=== PATIENT | male | born 1970 | race Caucasian/White ===

== ENCOUNTER 2024-09-07 19:20 | Outpatient (CLI) | payer OTHER, SELFPAY ==
--- NOTE | 2024-10-11 08:04 | W.PM.SLEEP ---
Sleep Study Details Details Interpreting Provider: Cb Date of Sleep Study: 09/07/24 Sleep Study Details: STUDY TYPE:? Home unattended ? BMI:? 33.4 ORDERING PROVIDER:? Stanley INDICATION:? Concern about sleep apnea ? SLEEP SUMMARY:? 370 minutes monitored RESPIRATORY SUMMARY:? AHI 5.4 Low oxygen 87 1.1% of study oxygen less than 90% Snoring 88.8% PERIODIC LIMB MOVEMENTS OF SLEEP:? Not recorded CARDIAC:? Range 51-103, mean 62.4 IMPRESSION:? Mild obstructive sleep apnea RECOMMENDATION: If symptomatic treatment options include CPAP dental appliance and/or airway expansion surgery
== END 2024-09-07 19:21 | disposition home or self-care (01) ==
PROVIDERS: PCP Family Medicine; Visit Provider Family Medicine
DX: G47.33 Obstructive sleep apnea (adult) (pediatric) (principal)
CPT/HCPCS: 95806

== ENCOUNTER 2024-09-29 09:44 | Outpatient (CLI) | payer OTHER, SELFPAY | END 2024-09-29 09:45 | disposition home or self-care (01) | LOC: NFLDREF 10-02 03:25 | PROVIDERS: PCP Family Medicine; Referring Provider Family Medicine; Visit Provider Family Medicine | DX: Z12.5 Encounter for screening for malignant neoplasm of prostate (principal); Z13.6 Encounter for screening for cardiovascular disorders; Z13.0 Encounter for screening for diseases of the blood and blood-forming organs and certain disorders involving the immune mechanism | CPT/HCPCS: 80053; 80061; G0103 ==

== ENCOUNTER 2025-05-05 10:04 | Outpatient (CLI) | payer OTHER, SELFPAY | END 2025-05-05 10:05 | disposition home or self-care (01) | LOC: NFLDREF 05-10 18:42 | PROVIDERS: PCP Family Medicine; Referring Provider Family Medicine; Visit Provider Family Medicine | DX: R73.9 Hyperglycemia, unspecified (principal); E78.1 Pure hyperglyceridemia | CPT/HCPCS: 80061; 80076 ==